=== PATIENT | female | born 1985 | race Caucasian/White ===

== ENCOUNTER 2016-12-03 12:30 | Emergency (ER) | payer BC ==
[2016-12-03 12:39] VITALS: BP 115/67; PULSE 75; RESP 18; TEMP 98; O2SAT 96
--- NOTE | 2016-12-03 12:48 | EDPHY ---
H & P Time Seen by Provider: 12/03/16 12:37 HPI/ROS: CHIEF COMPLAINT: Left pinky finger pain History by patient HISTORY OF PRESENT ILLNESS: 30-year-old man presents complaining of pain in her left pinky finger as well as some purplish discoloration after having her finger squeezed in a dog leash when she was walking a dog yesterday. She says the lease scraped her finger and cut it and she noticed some bleeding but then last night she noticed that her finger was starting to turn purple. She washed the wound with hand cuff maker as well soap and water. She is worried it might have be infected now. She denies any fever or chills. She is otherwise well. REVIEW OF SYSTEMS: As in HPI, and all other systems reviewed and are negative Smoking Status: Never smoked Physical Exam: General Appearance: Alert and no distress. Eyes: Pupils equal and round no injection. Musculoskeletal: Neck is supple and nontender. Extremities: Left pinky finger with ecchymoses along distal ulnar 1 volar surface, full range of motion of the IP and PIP without pain, distal cap refill less than 2 seconds, distal sensation intact, no bony tenderness. Skin: No rashes or lesions. Constitutional: Initial Vital Signs Temperature (C) 36.6 C 12/03/16 12:37 Heart Rate 75 12/03/16 12:37 Respiratory Rate 18 12/03/16 12:37 Blood Pressure 115/67 12/03/16 12:37 O2 Sat (%) 96 12/03/16 12:37 O2 Delivery Mode Room Air Allergies/Adverse Reactions: erthoymicin Allergy (Uncoded 12/03/16 12:37) Home Medications: Medication Instructions Recorded NK [No Known Home Meds] 12/03/16 MDM/Departure - MDM ED Course/Re-evaluation: Patient presents concerned about infection and lesion on left pinky finger. There is no evidence of infection but obvious ecchymosis. There is no suspicion for fracture. We discussed conservative measures and home care as well as signs and symptoms of infection. - Depart Disposition: Home, Routine, Self-Care Clinical Impression: Abrasion Contusion Qualifiers: Encounter type: initial encounter Contusion area: finger Finger: little finger Damage to nail status: without damage Laterality: left Qualified Code(s): S60.052A - Contusion of left little finger without damage to nail, initial encounter Condition: Good Additional Instructions: You were seen by Dr. Dominga Simms today. Return for any worsening or new concerns. ED ice her finger take ibuprofen as needed. Continue to wash her hands with soap and water. Watch for signs of infection including but not limited to increased swelling, redness, draining pus or fever. Referrals: ,UNKNOWN [Other] - As per Instructions
== END 2016-12-03 12:54 | disposition home or self-care (01) ==
LOC: CED 12:30
DX: S60.052A Contusion of left little finger without damage to nail, initial encounter (principal); S60.417A Abrasion of left little finger, initial encounter; W45.8XXA Other foreign body or object entering through skin, initial encounter; Y99.8 Other external cause status; Y93.K1 Activity, walking an animal